=== PATIENT | female | born 1980 | race African-American/Black ===

== ENCOUNTER 2017-03-28 00:52 | Emergency (ER) | payer SELFPAY ==
[2017-03-28 02:29] VITALS: BP 122/97
[2017-03-28 02:29] LABS: UA SPECIFIC GRAVITY >=1.030 (1.005-1.035); microscopic required? YES; urine erythrocyte 3+ (NEGATIVE)
== END 2017-03-28 02:29 | disposition home or self-care (01) ==
LOC: ED 00:52
PROVIDERS: Emergency Medicine
DX: R10.9 Unspecified abdominal pain (principal); R39.15 Urgency of urination; R35.0 Frequency of micturition; R63.0 Anorexia; R03.0 Elevated blood-pressure reading, without diagnosis of hypertension; F17.200 Nicotine dependence, unspecified, uncomplicated
CPT/HCPCS: J1885

== ENCOUNTER 2017-07-07 09:46 | Emergency (ER) | payer OTHER ==
[2017-07-07 12:08] VITALS: BP 122/71
== END 2017-07-07 12:35 | disposition home or self-care (01) ==
LOC: ED 09:46
DX: J02.9 Acute pharyngitis, unspecified (principal); R22.1 Localized swelling, mass and lump, neck
CPT/HCPCS: J1100; J8540

== ENCOUNTER 2017-07-19 17:53 | Emergency (ER) | payer OTHER | END 2017-07-19 21:10 | disposition left against medical advice (07) | LOC: ED 17:53 | DX: Z53.21 Procedure and treatment not carried out due to patient leaving prior to being seen by health care provider (principal) ==